=== PATIENT | female | born 2000 | race Two or more races ===

== ENCOUNTER 2022-04-27 15:23 | Emergency (ER) | payer OTHER ==
[~2022-04-27] VITALS: Ht 152.4 cm; Wt 62.1 kg
== END 2022-04-27 19:12 | disposition home or self-care (01) ==
LOC: ER 15:23
DX: O26.892 Other specified pregnancy related conditions, second trimester (principal); Z3A.18 18 weeks gestation of pregnancy; R10.2 Pelvic and perineal pain

== ENCOUNTER 2022-06-17 14:24 | Outpatient (CLI) | payer OTHER | END 2022-06-17 16:15 | disposition home or self-care (01) | LOC: PRENATAL 14:24 | PROVIDERS: ATTEND Obstetrics & Gynecology Maternal & Fetal Medicine | DX: O35.9XX0 Maternal care for (suspected) fetal abnormality and damage, unspecified, not applicable or unspecified (principal); O35.3XX0 Maternal care for (suspected) damage to fetus from viral disease in mother, not applicable or unspecified; O26.879 Cervical shortening, unspecified trimester; Z3A.26 26 weeks gestation of pregnancy ==

== ENCOUNTER 2022-08-07 01:33 | Outpatient (CLI) | payer OTHER ==
[~2022-08-07] VITALS: Ht 152.4 cm; Wt 70.3 kg
[2022-08-07] MEDS ORDERED: PRENATAL TABLE1 EAC1 PO (01:40)
== END 2022-08-07 14:28 | disposition home or self-care (01) ==
LOC: OBS/DEL 01:33
PROVIDERS: ATTEND Obstetrics & Gynecology
DX: O26.893 Other specified pregnancy related conditions, third trimester (principal); R10.2 Pelvic and perineal pain; Z3A.33 33 weeks gestation of pregnancy; Z20.822 Contact with and (suspected) exposure to COVID-19; Z91.040 Latex allergy status

== ENCOUNTER 2022-09-15 07:44 | Inpatient (IN) | payer OTHER ==
[~2022-09-15] VITALS: Ht 61 cm; Wt 77.1 kg
[~2022-09-15 07:44] MED LIST: PRENATAL TABLE1 EAC1 PO
== END 2022-09-17 12:09 | disposition home or self-care (01) | DRG 807 ==
LOC: LDR 07:44 → OB/GYN 17:54
PROVIDERS: ADMIT Student in an Organized Health Care Education/Training Program; ATTEND Student in an Organized Health Care Education/Training Program
PROC: 10E0XZZ Delivery of Products of Conception, External Approach (ICD-10-PCS; principal; 2022-09-15)
PROC: 0W8NXZZ Division of Female Perineum, External Approach (ICD-10-PCS; 2022-09-15)
PROC: 4A1HXCZ Monitoring of Products of Conception, Cardiac Rate, External Approach (ICD-10-PCS; 2022-09-15)
DX: O99.824 Streptococcus B carrier state complicating childbirth (principal); Z37.0 Single live birth; Z3A.39 39 weeks gestation of pregnancy; Z20.822 Contact with and (suspected) exposure to COVID-19